=== PATIENT | male | born 1950 | race Caucasian/White ===

== ENCOUNTER 2016-11-10 07:53 | Outpatient (RCR) | payer MEDICARE, BC ==
[2016-10-06 10:06] VITALS: BP 122/74
[~2016-11-10 07:53] MED LIST: ASPIRIN E.C. 8181 MG PO; DAILY VITAMIN1 EAC3 PO; FISH OIL 1000MG1 CAP PO; KLONOPIN0.5 M1 PO; PRILOSEC40 M1 PO; QUALITY CHOICE600 M1 PO; TENORMIN 5050 MG/TAB PO; VITAMIN D 90 MG1 TAB PO; ZOCOR40 M1 PO
== END 2016-12-14 08:00 | disposition home or self-care (01) ==
LOC: PT 07:53
DX: Z47.89 Encounter for other orthopedic aftercare (principal); M75.102 Unspecified rotator cuff tear or rupture of left shoulder, not specified as traumatic

== ENCOUNTER → 2016-11-30 | Outpatient (CLI) | payer MEDICARE, BC | LOC: LAB 09:22 | DX: M25.511 Pain in right shoulder (principal) ==

== ENCOUNTER → 2017-07-01 | Outpatient (CLI) | payer MEDICARE, BC ==
[2016-10-06 10:06] VITALS: BP 122/74
== END ==
LOC: RAD 16:26
DX: M25.511 Pain in right shoulder (principal)

== ENCOUNTER → 2017-09-22 | Outpatient (CLI) | payer MEDICARE, BC ==
[~2017-09-22] VITALS: Ht 175.3 cm; Wt 94.1 kg
[~2017-09-22] MED LIST changes: +LEADER NATURA500 MCG PO; +PAIN RELIEVER500 M2 PO; +REQUIP 1MG T1 MG/TAB PO
[2017-09-22 14:00] VITALS: BP 156/80
[2017-09-22 14:05] LABS: HEMATOCRIT 43.4 % (42.0-52.0); HEMOGLOBIN 15.1 g/dL (13.5-18.0); MEAN CELL VOLUME 92 fl (78-100); MEAN CORPUSCULAR HEMOGLOBIN 32 pg (27-31); MEAN CORPUSCULAR HGB CONC 35 g/dL (33-37); MEAN PLATELET VOLUME 10.2 fl (7.4-10.4); PLATELET COUNT 164 K/mm3 (130-400); RED CELL DISTRIBUTION WIDTH 12.7 % (11.5-14.5); WHITE BLOOD COUNT 6.4 K/mm3 (4.8-10.8)
[2017-09-22 14:19] LABS: ALBUMIN 4.2 g/dL (3.5-5.0); BUN/CREATININE RATIO 16.5 (6.0-26.0); CALCIUM 9.3 mg/dL (8.4-10.2); POTASSIUM 4.3 mmol/L (3.6-5.0); TOTAL BILIRUBIN 0.7 mg/dL (0.2-1.3); TOTAL PROTEIN 6.9 g/dL (6.3-8.2)
[2017-09-22 14:31] LABS: LYMPHOCYTE 31 % (20-51); MONOCYTE 7 % (3-10); NEUTROPHILS 59 % (42-75)
[2017-09-22 14:35] LABS: PROTHROMBIN TIME 10.4 SECONDS (9.0-12.0)
[2017-09-22 14:52] LABS: URINE APPEARANCE CLEAR; URINE BILIRUBIN NEGATIVE (NEGATIVE); URINE BLOOD NEGATIVE (NEGATIVE); URINE COLOR YELLOW; URINE GLUCOSE NEGATIVE (NEGATIVE); URINE KETONE NEGATIVE (NEGATIVE); URINE LEUKOCYTE ESTERASE NEGATIVE (NEGATIVE); URINE NITRATE NEGATIVE (NEGATIVE); URINE PROTEIN(semi-quant) NEGATIVE (NEGATIVE); URINE UROBILINOGEN NORMAL (NORMAL); URINE WBC 0-1 /hpf (0-3)
== END ==
LOC: AMSURD 13:37
PROVIDERS: Internal Medicine
DX: Z01.818 Encounter for other preprocedural examination (principal); M25.511 Pain in right shoulder

== ENCOUNTER → 2017-10-04 | Outpatient (CLI) | payer MEDICARE, BC ==
[2017-09-22 14:00] VITALS: BP 156/80
== END ==
LOC: PT 08:22
DX: Z01.818 Encounter for other preprocedural examination (principal)

== ENCOUNTER 2018-01-06 09:00 | Outpatient (RCR) | payer MEDICARE, BC ==
[2017-09-22 14:00] VITALS: BP 156/80
== END 2018-01-10 | disposition home or self-care (01) ==
LOC: PT
DX: Z47.89 Encounter for other orthopedic aftercare (principal); M75.101 Unspecified rotator cuff tear or rupture of right shoulder, not specified as traumatic
CPT/HCPCS: G8985-GP

== ENCOUNTER 2018-02-10 08:00 | Outpatient (RCR) | payer MEDICARE, BC ==
[2017-09-22 14:00] VITALS: BP 156/80
== END 2018-02-10 08:30 | disposition home or self-care (01) ==
LOC: PT 08:00
DX: Z47.89 Encounter for other orthopedic aftercare (principal)
CPT/HCPCS: G8985-GP

== ENCOUNTER → 2018-09-06 | Outpatient (CLI) | payer MEDICARE, BC ==
[2017-09-22 14:00] VITALS: BP 156/80
[2018-09-06 09:15] LABS: HEMATOCRIT 46.8 % (42.0-52.0); HEMOGLOBIN 16.7 g/dL (13.5-18.0); MEAN CELL VOLUME 91 fl (78-100); MEAN CORPUSCULAR HEMOGLOBIN 32 pg (27-31); MEAN CORPUSCULAR HGB CONC 36 g/dL (33-37); MEAN PLATELET VOLUME 10.3 fl (7.4-10.4); PLATELET COUNT 161 K/mm3 (130-400); RED BLOOD COUNT 5.15 M/mm3 (4.20-5.60); RED CELL DISTRIBUTION WIDTH 12.6 % (11.5-14.5); WHITE BLOOD COUNT 6.2 K/mm3 (4.8-10.8)
[2018-09-06 09:24] LABS: ALBUMIN 4.4 g/dL (3.5-5.0); CALCIUM 9.8 mg/dL (8.4-10.2); POTASSIUM 4.2 mmol/L (3.6-5.0); TOTAL PROTEIN 7.6 g/dL (6.3-8.2)
[2018-09-06 09:57] LABS: LYMPHOCYTE 31 % (20-51); MONOCYTE 15 % (3-10); NEUTROPHILS 49 % (42-75)
[2018-09-06 10:30] LABS: ERYTHROCYTE SEDIMENTATION RATE 2 mm/hr (0-20)
[2018-09-07 09:15] LABS: IEPS IGA 196 mg/dL (101-645); IEPS IGG 1089 mg/dL (540-1822); IEPS IGM 46 mg/dL (22-240); IEPS TP 7.2 g/dL (6.0-7.6)
== END ==
LOC: LAB 08:43
PROVIDERS: Psychiatry & Neurology Neurology
DX: Z12.5 Encounter for screening for malignant neoplasm of prostate (principal); Z12.11 Encounter for screening for malignant neoplasm of colon; I10 Essential (primary) hypertension; E78.2 Mixed hyperlipidemia; M85.80 Other specified disorders of bone density and structure, unspecified site; N52.9 Male erectile dysfunction, unspecified; G62.9 Polyneuropathy, unspecified; R77.9 Abnormality of plasma protein, unspecified

== ENCOUNTER → 2018-09-21 | Outpatient (CLI) | payer MEDICARE, BC ==
[2017-09-22 14:00] VITALS: BP 156/80
== END ==
LOC: LAB 08:16
DX: Z12.11 Encounter for screening for malignant neoplasm of colon (principal)

== ENCOUNTER → 2019-03-19 | Outpatient (CLI) | payer MEDICARE, BC ==
[2017-09-22 14:00] VITALS: BP 156/80
[2019-03-19 09:48] LABS: EOS # 0.1 (0.04-0.40); EOS % 2.3 % (0.0-4.0); HEMATOCRIT 44.8 % (42.0-52.0); HEMOGLOBIN 15.3 g/dL (13.5-18.0); LYMPH# 1.4 (1.50-4.00); MEAN CELL VOLUME 94 fl (78-100); MEAN CORPUSCULAR HEMOGLOBIN 32 pg (27-31); MEAN CORPUSCULAR HGB CONC 34 g/dL (33-37); MEAN PLATELET VOLUME 10.4 fl (7.4-10.4); MONO # 0.6 (0.20-0.80); NEU # 3.4 (1.40-6.50); PLATELET COUNT 155 K/mm3 (130-400); RED BLOOD COUNT 4.75 M/mm3 (4.20-5.60); RED CELL DISTRIBUTION WIDTH 12.9 % (11.5-14.5); WHITE BLOOD COUNT 5.7 K/mm3 (4.8-10.8)
[2019-03-19 10:26] LABS: ALBUMIN 4.2 g/dL (3.4-4.8); CALCIUM 9.8 mg/dL (8.8-10.0); POTASSIUM 4.4 mmol/L (3.5-5.1); TOTAL BILIRUBIN 0.6 mg/dL (0.2-1.2); TOTAL PROTEIN 6.8 g/dL (6.2-8.1)
== END ==
LOC: LAB 09:33
PROVIDERS: Internal Medicine
DX: Z13.820 Encounter for screening for osteoporosis (principal); I10 Essential (primary) hypertension; E78.2 Mixed hyperlipidemia; I65.29 Occlusion and stenosis of unspecified carotid artery; M85.80 Other specified disorders of bone density and structure, unspecified site; I25.10 Atherosclerotic heart disease of native coronary artery without angina pectoris

== ENCOUNTER → 2019-09-24 | Outpatient (CLI) | payer MEDICARE, BC ==
[2017-09-22 14:00] VITALS: BP 156/80
[2019-09-24 09:28] LABS: EOS # 0.2 (0.04-0.40); EOS % 3.7 % (0.0-4.0); HEMATOCRIT 47.2 % (42.0-52.0); HEMOGLOBIN 16.1 g/dL (13.5-18.0); LYMPH# 1.5 (1.50-4.00); MEAN CELL VOLUME 92 fl (78-100); MEAN CORPUSCULAR HEMOGLOBIN 31 pg (27-31); MEAN CORPUSCULAR HGB CONC 34 g/dL (33-37); MONO # 0.7 (0.20-0.80); NEU # 3.2 (1.40-6.50); PLATELET COUNT 161 K/mm3 (130-400); RED BLOOD COUNT 5.13 M/mm3 (4.20-5.60); RED CELL DISTRIBUTION WIDTH 12.7 % (11.5-14.5); WHITE BLOOD COUNT 5.6 K/mm3 (4.8-10.8)
[2019-09-24 09:38] LABS: ALBUMIN 4.4 g/dL (3.4-4.8); POTASSIUM 4.3 mmol/L (3.5-5.1)
[2019-09-24 09:39] LABS: CALCIUM 9.9 mg/dL (8.3-10.5)
[2019-09-24 09:40] LABS: TOTAL PROTEIN 7.1 g/dL (6.2-8.1)
[2019-09-24 09:42] LABS: TOTAL BILIRUBIN 0.7 mg/dL (0.2-1.2)
[2019-09-24 09:47] LABS: MAGNESIUM 1.84 mg/dL (1.60-2.60)
[2019-09-24 10:49] LABS: ERYTHROCYTE SEDIMENTATION RATE 2 mm/hr (0-20)
[2019-09-24 21:28] LABS: TESTOSTERONE 587 ng/dL (221-716)
== END ==
LOC: LAB 09:11
PROVIDERS: Internal Medicine
DX: Z12.5 Encounter for screening for malignant neoplasm of prostate (principal); Z12.11 Encounter for screening for malignant neoplasm of colon; I10 Essential (primary) hypertension; M85.80 Other specified disorders of bone density and structure, unspecified site; E78.2 Mixed hyperlipidemia; N52.9 Male erectile dysfunction, unspecified

== ENCOUNTER → 2019-10-12 | Outpatient (CLI) | payer MEDICARE, BC ==
[2017-09-22 14:00] VITALS: BP 156/80
== END ==
LOC: LAB 08:21
DX: Z12.5 Encounter for screening for malignant neoplasm of prostate (principal); Z12.11 Encounter for screening for malignant neoplasm of colon; E78.2 Mixed hyperlipidemia

== ENCOUNTER → 2020-03-24 | Outpatient (CLI) | payer MEDICARE, BC ==
[2017-09-22 14:00] VITALS: BP 156/80
[2020-03-24 09:22] LABS: EOS # 0.3 (0.04-0.40); EOS % 4.5 % (0.0-4.0); HEMATOCRIT 45.4 % (42.0-52.0); HEMOGLOBIN 15.8 g/dL (13.5-18.0); LYMPH# 1.9 (1.50-4.00); MEAN CELL VOLUME 93 fl (78-100); MEAN CORPUSCULAR HEMOGLOBIN 32 pg (27-31); MEAN CORPUSCULAR HGB CONC 35 g/dL (33-37); MEAN PLATELET VOLUME 10.1 fl (7.4-10.4); MONO # 0.7 (0.20-0.80); NEU # 3.6 (1.40-6.50); PLATELET COUNT 157 K/mm3 (130-400); RED BLOOD COUNT 4.87 M/mm3 (4.20-5.60); RED CELL DISTRIBUTION WIDTH 12.8 % (11.5-14.5); WHITE BLOOD COUNT 6.5 K/mm3 (4.8-10.8)
[2020-03-24 09:33] LABS: POTASSIUM 4.7 mmol/L (3.5-5.1)
[2020-03-24 09:34] LABS: ALBUMIN 4.5 g/dL (3.4-4.8)
[2020-03-24 09:35] LABS: CALCIUM 9.8 mg/dL (8.3-10.5)
[2020-03-24 09:38] LABS: TOTAL BILIRUBIN 0.8 mg/dL (0.2-1.2)
[2020-03-24 09:43] LABS: MAGNESIUM 2.01 mg/dL (1.60-2.60)
== END ==
LOC: LAB 09:10
PROVIDERS: Internal Medicine
DX: I10 Essential (primary) hypertension (principal); M85.80 Other specified disorders of bone density and structure, unspecified site; E78.2 Mixed hyperlipidemia

== ENCOUNTER → 2021-04-10 | Outpatient (CLI) | payer MEDICARE, BC ==
[2017-09-22 14:00] VITALS: BP 156/80
[2021-04-10 09:54] LABS: ALBUMIN 4.3 g/dL (3.4-4.8); POTASSIUM 4.5 mmol/L (3.5-5.1)
[2021-04-10 09:55] LABS: CALCIUM 9.5 mg/dL (8.3-10.5)
[2021-04-10 09:56] LABS: TOTAL PROTEIN 7.3 g/dL (6.2-8.1)
[2021-04-10 09:58] LABS: TOTAL BILIRUBIN 0.6 mg/dL (0.2-1.2)
[2021-04-10 10:27] LABS: BASO # 0.03 (0.02-0.10); HEMATOCRIT 45.1 % (42.0-52.0); HEMOGLOBIN 15.7 g/dL (13.5-18.0); LYMPH# 1.65 (1.50-4.00); MEAN CELL VOLUME 92 fl (78-100); MEAN CORPUSCULAR HEMOGLOBIN 32 pg (27-31); MEAN CORPUSCULAR HGB CONC 35 g/dL (33-37); MEAN PLATELET VOLUME 10.4 fl (7.4-10.4); MONO # 0.74 (0.20-0.80); NEU # 3.28 (1.40-6.50); PLATELET COUNT 140 K/mm3 (130-400); RED BLOOD COUNT 4.88 M/mm3 (4.20-5.60); RED CELL DISTRIBUTION WIDTH 12.3 % (11.5-14.5)
== END ==
LOC: LAB 09:19
PROVIDERS: Internal Medicine
DX: Z12.5 Encounter for screening for malignant neoplasm of prostate (principal); I25.10 Atherosclerotic heart disease of native coronary artery without angina pectoris; M85.80 Other specified disorders of bone density and structure, unspecified site

== ENCOUNTER → 2021-04-23 | Outpatient (CLI) | payer MEDICARE, BC | LOC: LAB 11:25 | DX: Z12.11 Encounter for screening for malignant neoplasm of colon (principal) ==

== ENCOUNTER → 2021-04-30 | Outpatient (CLI) | payer MEDICARE, BC ==
[2017-09-22 14:00] VITALS: BP 156/80
== END ==
LOC: RAD 08:16 → MAMMO 08:30 → RAD 08:30
DX: Z13.820 Encounter for screening for osteoporosis (principal); M85.80 Other specified disorders of bone density and structure, unspecified site

== ENCOUNTER → 2021-05-05 | Outpatient (CLI) | payer MEDICARE, BC | LOC: PT 04-23 11:20 → CARDREHAB 13:04 | DX: G47.19 Other hypersomnia (principal) | CPT/HCPCS: G0399 ==

== ENCOUNTER → 2021-11-04 | Outpatient (CLI) | payer MEDICARE, BC | LOC: RAD 08:37 | DX: R06.02 Shortness of breath (principal) ==

== ENCOUNTER → 2021-11-10 | Outpatient (CLI) | payer MEDICARE, BC | LOC: LAB 10:29 | DX: U07.1 COVID-19 (principal) ==

== ENCOUNTER → 2021-12-10 | Outpatient (CLI) | payer MEDICARE, BC ==
[2021-12-10 08:54] LABS: BASO # 0.04 K/mm3 (0.02-0.10); EOS % 3.1 % (0.0-4.0); HEMATOCRIT 43.8 % (42.0-52.0); MEAN CELL VOLUME 96 fl (78-100); MEAN CORPUSCULAR HEMOGLOBIN 33 pg (27-31); MEAN CORPUSCULAR HGB CONC 34 g/dL (33-37); MEAN PLATELET VOLUME 10.3 fl (7.4-10.4); MONO # 0.98 K/mm3 (0.20-0.80); NEU # 3.62 K/mm3 (1.40-6.50); PLATELET COUNT 144 K/mm3 (130-400); RED BLOOD COUNT 4.58 M/mm3 (4.20-5.60); RED CELL DISTRIBUTION WIDTH 12.5 % (11.5-14.5); WHITE BLOOD COUNT 6.5 K/mm3 (4.8-10.8)
[2021-12-10 09:01] LABS: ALBUMIN 4.2 g/dL (3.4-4.8); POTASSIUM 4.4 mmol/L (3.5-5.1)
[2021-12-10 09:02] LABS: CALCIUM 9.2 mg/dL (8.3-10.5)
[2021-12-10 09:03] LABS: TOTAL PROTEIN 6.8 g/dL (6.2-8.1)
[2021-12-10 09:05] LABS: TOTAL BILIRUBIN 0.5 mg/dL (0.2-1.2)
[2021-12-10 09:33] LABS: D-DIMER 0.48 mg/L FEU (0.15-0.50)
[2021-12-10 10:41] LABS: ERYTHROCYTE SEDIMENTATION RATE 3 mm/hr (0-20)
== END ==
LOC: LAB 08:22
PROVIDERS: Internal Medicine
DX: J39.8 Other specified diseases of upper respiratory tract (principal)

== ENCOUNTER → 2021-12-11 | Outpatient (CLI) | payer MEDICARE, BC | LOC: RAD 10:15 | DX: R91.8 Other nonspecific abnormal finding of lung field (principal) | CPT/HCPCS: Q9967 ==

== ENCOUNTER → 2022-01-21 | Outpatient (CLI) | payer MEDICARE, BC | LOC: LAB 08:02 | DX: R06.00 Dyspnea, unspecified (principal) ==

== ENCOUNTER → 2022-12-06 | Outpatient (CLI) | payer MEDICARE, BC ==
[2022-12-06 10:42] LABS: BASO # 0.03 K/mm3 (0.02-0.10); EOS # 0.26 K/mm3 (0.04-0.40); EOS % 3.8 % (0.0-4.0); HEMATOCRIT 47.1 % (42.0-52.0); HEMOGLOBIN 16.3 g/dL (13.5-18.0); LYMPH# 1.52 K/mm3 (1.50-4.00); MEAN CELL VOLUME 94 fl (78-100); MEAN CORPUSCULAR HEMOGLOBIN 33 pg (27-31); MEAN CORPUSCULAR HGB CONC 35 g/dL (33-37); MONO # 0.72 K/mm3 (0.20-0.80); NEU # 4.39 K/mm3 (1.40-6.50); PLATELET COUNT 162 K/mm3 (130-400); RED BLOOD COUNT 5.01 M/mm3 (4.20-5.60); RED CELL DISTRIBUTION WIDTH 12.4 % (11.5-14.5); WHITE BLOOD COUNT 6.9 K/mm3 (4.8-10.8)
[2022-12-06 10:47] LABS: ALBUMIN 4.8 g/dL (3.4-4.8)
[2022-12-06 10:48] LABS: CALCIUM 10.1 mg/dL (8.3-10.5)
[2022-12-06 10:49] LABS: TOTAL PROTEIN 7.8 g/dL (6.2-8.1)
[2022-12-06 10:51] LABS: PH-URINE 7.5 (5.0 - 8.0); TOTAL BILIRUBIN 0.6 mg/dL (0.2-1.2); URINE APPEARANCE CLEAR; URINE BILIRUBIN NEGATIVE (NEGATIVE); URINE BLOOD NEGATIVE (NEGATIVE); URINE COLOR LIGHT YELLOW; URINE GLUCOSE NEGATIVE (NEGATIVE); URINE KETONE NEGATIVE (NEGATIVE); URINE LEUKOCYTE ESTERASE NEGATIVE (NEGATIVE); URINE NITRATE NEGATIVE (NEGATIVE); URINE PROTEIN(semi-quant) TRACE (NEGATIVE); URINE UROBILINOGEN NORMAL (NORMAL); URINE WBC 0-1 /hpf (0-3)
[2022-12-06 10:56] LABS: MAGNESIUM 2.07 mg/dL (1.60-2.60)
[2022-12-06 11:47] LABS: ERYTHROCYTE SEDIMENTATION RATE 6 mm/hr (0-20)
[2022-12-06 21:46] LABS: TESTOSTERONE 623 ng/dL (221-716)
== END ==
LOC: LAB 10:16
PROVIDERS: Internal Medicine
DX: I25.10 Atherosclerotic heart disease of native coronary artery without angina pectoris (principal); K90.9 Intestinal malabsorption, unspecified; Z12.5 Encounter for screening for malignant neoplasm of prostate; J98.4 Other disorders of lung; N40.0 Benign prostatic hyperplasia without lower urinary tract symptoms; R31.29 Other microscopic hematuria; F52.21 Male erectile disorder

== ENCOUNTER 2023-01-03 07:34 | Emergency (ER) | payer MEDICARE, BC ==
[2023-01-03] MEDS ORDERED: LOPRESSOR 225 MG/TAB PO (07:45)
[2023-01-03] MEDS ORDERED: THEOPHYLLINE400 M1 PO (08:09)
[2023-01-03] MEDS ORDERED: ALPHA LIPOIC A600 MG PO (08:09)
[2023-01-03] MEDS ORDERED: AMLODIPINE BESYL5 MG PO (08:09)
[2023-01-03 08:16] LABS: BASO # 0.04 K/mm3 (0.02-0.10); EOS % 3.5 % (0.0-4.0); HEMATOCRIT 44.2 % (42.0-52.0); LYMPH# 1.63 K/mm3 (1.50-4.00); MEAN CELL VOLUME 94 fl (78-100); MEAN CORPUSCULAR HEMOGLOBIN 32 pg (27-31); MEAN CORPUSCULAR HGB CONC 34 g/dL (33-37); MEAN PLATELET VOLUME 10.1 fl (7.4-10.4); MONO # 0.65 K/mm3 (0.20-0.80); NEU # 3.14 K/mm3 (1.40-6.50); PLATELET COUNT 162 K/mm3 (130-400); RED BLOOD COUNT 4.71 M/mm3 (4.20-5.60); RED CELL DISTRIBUTION WIDTH 12.3 % (11.5-14.5); WHITE BLOOD COUNT 5.7 K/mm3 (4.8-10.8)
[2023-01-03 08:18] LABS: ALBUMIN 4.2 g/dL (3.4-4.8); POTASSIUM 4.1 mmol/L (3.5-5.1); SODIUM 140 mmol/L (136-145)
[2023-01-03 08:19] LABS: CALCIUM 10.1 mg/dL (8.3-10.5)
[2023-01-03 08:20] LABS: GLUCOSE 127 mg/dL (75-110); TOTAL PROTEIN 6.8 g/dL (6.2-8.1)
[2023-01-03 08:21] LABS: CARBON DIOXIDE 23 mmol/L (23-31)
[2023-01-03 08:22] LABS: TOTAL BILIRUBIN 0.7 mg/dL (0.2-1.2)
[2023-01-03 08:26] LABS: AST-SGOT 32 U/L (5-34)
[2023-01-03 08:27] LABS: ALT/SGPT 35 U/L (0-55)
[2023-01-03 08:38] LABS: TROPONIN-I < 0.030 ng/mL (<0.030)
[2023-01-03 10:37] VITALS: BP 144/79
== END 2023-01-03 10:35 | disposition home or self-care (01) ==
LOC: ED 07:34
PROVIDERS: Nurse Practitioner
DX: K21.9 Gastro-esophageal reflux disease without esophagitis (principal); E66.9 Obesity, unspecified; Z95.5 Presence of coronary angioplasty implant and graft

== ENCOUNTER → 2024-01-20 | Outpatient (CLI) | payer MEDICARE, BC ==
[~2024-01-20] MED LIST changes: +ALPHA LIPOIC A600 MG PO; +AMLODIPINE BESYL5 MG PO; +LOPRESSOR 225 MG/TAB PO; +THEOPHYLLINE400 M1 PO
[2024-01-20 08:06] LABS: BASO # 0.02 K/mm3 (0.02-0.10); EOS # 0.29 K/mm3 (0.04-0.40); HEMATOCRIT 44.4 % (42.0-52.0); HEMOGLOBIN 15.2 g/dL (13.5-18.0); LYMPH# 1.71 K/mm3 (1.50-4.00); MEAN CELL VOLUME 92 fl (78-100); MEAN CORPUSCULAR HEMOGLOBIN 32 pg (27-31); MEAN CORPUSCULAR HGB CONC 34 g/dL (33-37); MEAN PLATELET VOLUME 10.2 fl (7.4-10.4); MONO # 0.61 K/mm3 (0.20-0.80); NEU # 3.17 K/mm3 (1.40-6.50); PLATELET COUNT 168 K/mm3 (130-400); RED BLOOD COUNT 4.81 M/mm3 (4.20-5.60); RED CELL DISTRIBUTION WIDTH 12.3 % (11.5-14.5); WHITE BLOOD COUNT 5.8 K/mm3 (4.8-10.8)
[2024-01-20 08:13] LABS: ALBUMIN 4.2 g/dL (3.4-4.8)
[2024-01-20 08:14] LABS: CALCIUM 9.9 mg/dL (8.3-10.5)
[2024-01-20 08:15] LABS: TOTAL PROTEIN 6.9 g/dL (6.2-8.1)
[2024-01-20 08:17] LABS: TOTAL BILIRUBIN 0.6 mg/dL (0.2-1.2)
[2024-01-20 08:22] LABS: MAGNESIUM 1.94 mg/dL (1.60-2.60)
[2024-01-24 13:50] LABS: THEOPHYLLINE AMS
== END ==
LOC: LAB 07:40
PROVIDERS: Internal Medicine
DX: Z12.5 Encounter for screening for malignant neoplasm of prostate (principal); Z12.11 Encounter for screening for malignant neoplasm of colon; I10 Essential (primary) hypertension; I25.10 Atherosclerotic heart disease of native coronary artery without angina pectoris; K90.9 Intestinal malabsorption, unspecified; J84.112 Idiopathic pulmonary fibrosis

== ENCOUNTER → 2024-01-23 | Outpatient (CLI) | payer MEDICARE, BC | LOC: LAB 08:57 | DX: Z12.5 Encounter for screening for malignant neoplasm of prostate (principal); Z12.11 Encounter for screening for malignant neoplasm of colon; I10 Essential (primary) hypertension; I25.10 Atherosclerotic heart disease of native coronary artery without angina pectoris; K90.9 Intestinal malabsorption, unspecified; J84.112 Idiopathic pulmonary fibrosis ==

== ENCOUNTER → 2024-05-08 | Day surgery (SDC) | payer MEDICARE, BC ==
[~2024-05-08] MED LIST changes: +Iohexol 300 - 10 ML VIAL IV ONE; +Lidocaine PF 2% (20 MG/ML) 2 ML VIAL IJ ONE
== END ==
LOC: MSO 13:17
DX: M47.896 Other spondylosis, lumbar region (principal); M96.1 Postlaminectomy syndrome, not elsewhere classified; M48.062 Spinal stenosis, lumbar region with neurogenic claudication; M54.16 Radiculopathy, lumbar region
CPT/HCPCS: J1100; Q9967

== ENCOUNTER → 2024-06-12 | Day surgery (SDC) | payer MEDICARE, BC ==
[~2024-06-12] MED LIST changes: -Lidocaine PF 2% (20 MG/ML) 2 ML VIAL IJ ONE; +methylPREDNISolone acetate 80 MG/ML VIAL IJ ONE
== END ==
LOC: MSO 10:26
DX: M47.896 Other spondylosis, lumbar region (principal); M46.1 Sacroiliitis, not elsewhere classified; M54.16 Radiculopathy, lumbar region; M96.1 Postlaminectomy syndrome, not elsewhere classified; M54.50 Low back pain, unspecified; M53.3 Sacrococcygeal disorders, not elsewhere classified
CPT/HCPCS: J0665; J1010; Q9967

== ENCOUNTER 2024-06-28 09:55 | Emergency (ER) | payer MEDICARE, BC ==
[~2024-06-28] VITALS: Ht 403.9 cm; Wt 72.3 kg
[~2024-06-28 09:55] MED LIST changes: -Iohexol 300 - 10 ML VIAL IV ONE; -methylPREDNISolone acetate 80 MG/ML VIAL IJ ONE
[2024-06-28 10:39] LABS: BASO # 0.02 K/mm3 (0.02-0.10); EOS # 0.22 K/mm3 (0.04-0.40); HEMATOCRIT 42.9 % (42.0-52.0); HEMOGLOBIN 14.7 g/dL (13.5-18.0); MEAN CELL VOLUME 96 fl (78-100); MEAN CORPUSCULAR HEMOGLOBIN 33 pg (27-31); MEAN CORPUSCULAR HGB CONC 34 g/dL (33-37); MONO # 0.72 K/mm3 (0.20-0.80); NEU # 4.62 K/mm3 (1.40-6.50); PLATELET COUNT 148 K/mm3 (130-400); RED BLOOD COUNT 4.48 M/mm3 (4.20-5.60); RED CELL DISTRIBUTION WIDTH 12.8 % (11.5-14.5); WHITE BLOOD COUNT 7.4 K/mm3 (4.8-10.8)
[2024-06-28 10:40] LABS: ALBUMIN 4.3 g/dL (3.4-4.8)
[2024-06-28 10:41] LABS: CALCIUM 9.7 mg/dL (8.3-10.5)
[2024-06-28 10:42] LABS: TOTAL PROTEIN 6.6 g/dL (6.2-8.1)
[2024-06-28 10:44] LABS: TOTAL BILIRUBIN 0.6 mg/dL (0.2-1.2)
[2024-06-28 10:54] LABS: URINE WBC 0 /hpf (0-3)
[2024-06-28] MEDS ORDERED: Ondansetron 4 MG/2 ML VIAL IV ONE (11:00)
[2024-06-28] MEDS ORDERED: NS 1,000 ML IV SCH (11:00)
[2024-06-28] MEDS ORDERED: Ketorolac 30 MG/ML VIAL IV ONE (11:00)
[2024-06-28 11:08] LABS: D-DIMER 0.35 mg/L FEU (0.15-0.50)
[2024-06-28 11:25] LABS: URINE APPEARANCE CLEAR (CLEAR); URINE COLOR YELLOW (YELLOW)
[2024-06-28 11:26] LABS: PH-URINE 7.5 (5.0 - 8.0); URINE BILIRUBIN NEGATIVE (NEGATIVE); URINE BLOOD NEGATIVE (NEGATIVE); URINE GLUCOSE NEGATIVE (NEGATIVE); URINE KETONE NEGATIVE (NEGATIVE); URINE LEUKOCYTE ESTERASE NEGATIVE (NEGATIVE); URINE NITRATE NEGATIVE (NEGATIVE); URINE PROTEIN(semi-quant) NEGATIVE (NEGATIVE)
[2024-06-28 12:51] VITALS: BP 125/67
== END 2024-06-28 12:45 | disposition home or self-care (01) ==
LOC: ED 09:55
PROVIDERS: Nurse Practitioner
DX: R51.9 Headache, unspecified (principal); R42 Dizziness and giddiness; E66.9 Obesity, unspecified; Z68.1 Body mass index [BMI] 19.9 or less, adult
CPT/HCPCS: J1885; J2405; J7030

== ENCOUNTER → 2024-07-10 | Day surgery (SDC) | payer MEDICARE, BC ==
[~2024-07-10] MED LIST changes: +Iohexol 300 - 10 ML VIAL IV ONE; +Lidocaine PF 2% (20 MG/ML) 2 ML VIAL IJ ONE
== END ==
LOC: MSO
DX: M54.17 Radiculopathy, lumbosacral region (principal); M96.1 Postlaminectomy syndrome, not elsewhere classified; M47.896 Other spondylosis, lumbar region
CPT/HCPCS: J1100; Q9967

== ENCOUNTER → 2024-07-13 | Outpatient (CLI) | payer MEDICARE, BC ==
[~2024-07-13] MED LIST changes: +Gadoterate 20 ML VIAL IV ONE; -Iohexol 300 - 10 ML VIAL IV ONE; -Lidocaine PF 2% (20 MG/ML) 2 ML VIAL IJ ONE
== END ==
LOC: RAD 07:48
DX: J32.9 Chronic sinusitis, unspecified (principal); I67.82 Cerebral ischemia
CPT/HCPCS: A9575

== ENCOUNTER → 2025-01-18 | Outpatient (CLI) | payer MEDICARE, BC ==
[~2025-01-18] MED LIST changes: -Gadoterate 20 ML VIAL IV ONE
[2025-01-18 08:54] LABS: URINE WBC 0 /hpf (0-3)
[2025-01-18 09:02] LABS: BASO # 0.02 K/mm3 (0.02-0.10); EOS # 0.17 K/mm3 (0.04-0.40); EOS % 2.7 % (0.0-4.0); HEMATOCRIT 43.5 % (42.0-52.0); LYMPH# 1.75 K/mm3 (1.50-4.00); MEAN CELL VOLUME 94 fl (78-100); MEAN CORPUSCULAR HEMOGLOBIN 33 pg (27-31); MEAN CORPUSCULAR HGB CONC 35 g/dL (33-37); MONO # 0.77 K/mm3 (0.20-0.80); NEU # 3.55 K/mm3 (1.40-6.50); PLATELET COUNT 166 K/mm3 (130-400); RED BLOOD COUNT 4.61 M/mm3 (4.20-5.60); RED CELL DISTRIBUTION WIDTH 12.5 % (11.5-14.5); WHITE BLOOD COUNT 6.3 K/mm3 (4.8-10.8)
[2025-01-18 09:11] LABS: CALCIUM 10.1 mg/dL (8.3-10.5)
[2025-01-18 09:42] LABS: URINE APPEARANCE CLEAR (CLEAR); URINE BILIRUBIN NEGATIVE (NEGATIVE); URINE BLOOD NEGATIVE (NEGATIVE); URINE COLOR YELLOW (YELLOW); URINE GLUCOSE NEGATIVE (NEGATIVE); URINE KETONE NEGATIVE (NEGATIVE); URINE LEUKOCYTE ESTERASE NEGATIVE (NEGATIVE); URINE NITRATE NEGATIVE (NEGATIVE); URINE PROTEIN(semi-quant) NEGATIVE (NEGATIVE)
== END ==
LOC: AMSURD 08:19 → LAB 08:19
PROVIDERS: Internal Medicine
DX: Z01.818 Encounter for other preprocedural examination (principal); M54.16 Radiculopathy, lumbar region; M48.062 Spinal stenosis, lumbar region with neurogenic claudication

== ENCOUNTER → 2025-01-24 | Outpatient (CLI) | payer MEDICARE, BC ==
[2025-01-24 16:27] LABS: ALBUMIN 4.5 g/dL (3.4-4.8)
[2025-01-24 16:28] LABS: CALCIUM 9.7 mg/dL (8.3-10.5)
[2025-01-24 16:30] LABS: TOTAL PROTEIN 7.3 g/dL (6.2-8.1)
[2025-01-24 16:32] LABS: TOTAL BILIRUBIN 0.5 mg/dL (0.2-1.2)
[2025-01-24 16:36] LABS: MAGNESIUM 1.98 mg/dL (1.60-2.60)
== END ==
LOC: LAB 15:16
PROVIDERS: Internal Medicine
DX: Z12.5 Encounter for screening for malignant neoplasm of prostate (principal); Z12.11 Encounter for screening for malignant neoplasm of colon; E78.00 Pure hypercholesterolemia, unspecified; I10 Essential (primary) hypertension; J84.112 Idiopathic pulmonary fibrosis; K90.9 Intestinal malabsorption, unspecified; G25.81 Restless legs syndrome